=== PATIENT | male | born 1985 | race Two or more races ===

== ENCOUNTER 2019-06-10 09:04 | Emergency (ER) | payer SELFPAY ==
[~2019-06-10] VITALS: Ht 175.3 cm; Wt 83.9 kg
--- NOTE | 2019-06-10 09:08 | NUR ---
ED Nurse Note: pt arrives from home with c/o sore throat and fever of 99.3 for past 2 days. no cough no dyspnea no n/v/d/abd pain. denies recent travel or exposure to known virus. relates painful to swallow. A/Ox4
[2019-06-10 09:10] VITALS: BP 116/78
--- NOTE | 2019-06-10 09:17 | NUR ---
ED Nurse Note: inf. swab obtained and sent.
[2019-06-10] MEDS ORDERED: Bicillin LA 1.2MMU/2ML SYR IM ONE (10:00)
--- NOTE | 2019-06-10 10:00 | Emergency Room Report ---
History of Present Illness General Chief Complaint: Sore Throat Source: Patient Present Illness HPI This patient states that for the past 2 days he has had a sore throat. He feels like his throat is swollen and he has painful swallowing. He denies fever or chills. He denies cough or congestion. He denies nausea or vomiting. He has no other complaints. COVID-19 risk:Contact w/high r: No COVID-19 risk:Travel to affect: No Has patient experienced jimenez: No Allergies: Coded Allergies: No Known Allergies (Unverified , 06/10/19) Patient History Past Medical History: none Social History: Denies: smoking, alcohol use, drug use Reviewed Nursing Documentation: PMH: Agreed; PSxH: Agreed Nursing Documentation-PMH Past Medical History: No Stated History Review of Systems All Other Systems: negative except mentioned in HPI Physical Exam Vital Signs Date Time Temp Pulse Resp B/P (MAP) Pulse Ox O2 Delivery O2 Flow Rate FiO2 06/10/19 08:56 99.0 103 20 116/78 (91) 96 Room Air Sp02 EP Interpretation: reviewed, normal General Appearance: no apparent distress, alert, GCS 15, non-toxic Head: normocephalic, atraumatic Eyes: bilateral eye normal inspection, bilateral eye PERRL ENT: hearing grossly normal, no angioedema, normal voice, other - Tonsillar and uvula edema and erythema. No exudates. Neck: full range of motion, supple/symm/no masses Respiratory: chest non-tender, lungs clear, normal breath sounds, no respiratory distress, no retraction, no accessory muscle use, speaking full sentences Cardiovascular #1: regular rate, rhythm, no edema Gastrointestinal: normal bowel sounds, non tender, soft, non-distended, no guarding, no rebound Rectal: deferred Musculoskeletal: back normal, normal range of motion, gait/station normal, non- tender Neurologic: alert, motor strength/tone normal, oriented x3, sensory intact, responsive, speech normal Psychiatric: judgement/insight normal, memory normal, mood/affect normal, no suicidal/homicidal ideation Skin: no rash, normal color Medical Decision Making Diagnostic Impression: Primary Impression: Acute pharyngitis ER Course This patient has a clinical presentation with pharyngitis. The patient requested IM penicillin as he has a history of strep pharyngitis. He was given IM penicillin. The patient also had edematous swollen tonsils and uvula. Given that I gave this patient antibiotics, I will go ahead and give the patient a course of steroids. As a precaution I will not give ibuprofen but will give Tylenol given the correlation of COVID-19 and worsening with ibuprofen. Although, the patient does not meet criteria for Covid-19. The evaluation was very reassuring with a normal lung exam, no respiratory distress , normal pulse oximetry. I am not concerned for pneumonia in this patient. The patient currently presents during pandemic of novel COVID-19. I educated the patient that at this time this is a [facility] and is unable to support COVID-19 screening for people that are otherwise healthy and well-appearing without evidence of decompensation. I did educate the patient that he could have any number of viral infections to include influenza, rhinovirus or COVID- 19. The patient was educated that he should self-quarantine for 14 days as a precaution and not come into contact with any one that is elderly or has multiple chronic medical conditions. The patient was also educated of the signs and symptoms that indicate worsening of a respiratory virus and would require return to the emergency department which includes worsening symptoms and difficulty breathing. At this time, I did not identify an emergency medical condition or condition that requires admission to the hospital. The patient is given close return precautions and follow-up instructions. Influenza A/B negative Last Vital Signs Date Time Temp Pulse Resp B/P (MAP) Pulse Ox O2 Delivery O2 Flow Rate FiO2 06/10/19 09:10 99.0 103 20 116/78 96 Room Air Disposition: HOME, SELF-CARE Condition: Stable Referrals: NOT CHOSEN MAHIN/,REFERRING (PCP) Casi Steen DO Jun 10, 2019 10:00
[2019-06-10] MEDS ORDERED: ACETAMINOPHEN500 M3 ORAL (10:01)
[2019-06-10] MEDS ORDERED: MEDROL DOSEPAK4 MG ORAL (10:01)
--- NOTE | 2019-06-10 10:02 | NUR ---
ED Nurse Note:medds given pt tolerates well.
[2019-06-10 10:12] VITALS: BP 112/72
--- NOTE | 2019-06-10 10:14 | NUR ---
ED Nurse Note: Pt cleared by health care Provider for discharge. DC instructions/prescription was given and explained to pt and verbalized understanding of teachings. All medical devices such as ID band removed. Pt is AAO x4, ambulatory and left with all personal belongings. covid info given and advised to self quarantine
== END 2019-06-10 10:14 | disposition home or self-care (01) ==
LOC: EMR 09:26
DX: J02.9 Acute pharyngitis, unspecified (principal)
CPT/HCPCS: 86710; 96372; 99283; J0570; J0561